=== PATIENT | male | born 1965 | race Caucasian/White ===

== ENCOUNTER 2018-09-29 13:39 | Emergency (ER) | payer SELFPAY ==
[~2018-09-29] VITALS: Ht 190.5 cm; Wt 140.0 kg
[2018-09-29] MEDS ORDERED: LORazepam 1MG TABLET PO ONE (14:30)
[2018-09-29] MEDS ORDERED: LORazepam 1MG TABLET ONE (14:33)
[2018-09-29 14:34] LABS: BASOPHILS # (AUTO) 0.04 x10^3/uL (0-0.1); BASOPHILS % (AUTO) 1 % (0-1); EOSINOPHILS # (AUTO) 0.12 x10^3/uL (0-0.4); EOSINOPHILS % (AUTO) 1 % (1-7); LYMPHOCYTES # (AUTO) 1.21 x10^3/uL (1-3.4); LYMPHOCYTES % (AUTO) 13 % (22-44); MD NO; MEAN CORPUSCULAR HEMOGLOBIN 28.7 pg (27.5-34.5); MEAN CORPUSCULAR HGB CONC 32.5 g/dL (33.2-36.2); MEAN CORPUSCULAR VOLUME 88.3 fL (81-97); MEAN PLATELET VOLUME 7.7 fL (7.4-10.4); MONOCYTES # (AUTO) 0.51 x10^3/uL (0.2-0.8); MONOCYTES % (AUTO) 6 % (2-9); NEUTROPHILS # (AUTO) 7.37 x10^3/uL (1.8-6.8); NEUTROPHILS % (AUTO) 80 % (42-75); PLATELET COUNT 303 x10^3/uL (130-400); RED BLOOD COUNT 5.15 x10^6/uL (4.38-5.82); RED CELL DISTRIBUTION WIDTH 15.4 % (9.4-14.8)
[2018-09-29 14:45] LABS: ALANINE AMINOTRANSFERASE 21 U/L (12-78); ALBUMIN 3.1 g/dL (3.4-5.0); ANION GAP 7 mmol/L (5-15); CALCIUM 8.4 mg/dL (8.5-10.1); CHLORIDE 110 mmol/L (98-107); CREATININE 1.12 mg/dL (0.7-1.3)
[2018-09-29 14:49] LABS: ALKALINE PHOSPHATASE 143 U/L (45-117); BILIRUBIN,TOTAL 0.8 mg/dL (0.2-1.0); TOTAL PROTEIN 7.4 g/dL (6.4-8.2); TROPONIN I < 0.015 ng/mL (0.000-0.045)
--- NOTE | 2018-09-29 14:49 | NUR ---
pt new to [facility], hasn't found a PCP yet. could feel his BP raising and thought he should do something about it. cxr done, ativan given, waiting on bp Rx from pharmacy. pt on monitor, call light withine reach.
[2018-09-29] MEDS ORDERED: HYDROCHLOROTHIAZIDE 25 MG TABLET PO ONE (15:00)
--- NOTE | 2018-09-29 15:20 | NUR ---
PT AMBULATED TO BATHROOM, rX GIVEN, PT BACK ON OLIVE BRINE TESTER. RESTING AND WATCHING TV. CALL LIGHT WITH IN REACH.
[2018-09-29] MEDS ORDERED: hydrALAzine 20 MG/ML, 1ML IV ONE (16:00)
--- NOTE | 2018-09-29 16:44 | NUR ---
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 pt given Rx and signed his AMA paperwork. his BP remains high.
[2018-09-29 16:48] VITALS: BP 230/119
== END 2018-09-29 15:32 | disposition home or self-care (01) ==
LOC: ED 14:32
DX: I10 Essential (primary) hypertension (principal); F10.231 Alcohol dependence with withdrawal delirium; Y90.9 Presence of alcohol in blood, level not specified
CPT/HCPCS: 36415; 71045; 80053; 83880; 84484; 85025; 93005; 99291

== ENCOUNTER 2019-01-07 01:12 | Inpatient (IN) | payer OTHER ==
[~2019-01-07] VITALS: Ht 190.5 cm; Wt 163.8 kg
[2019-01-07] MEDS ORDERED: HYDR25TA6 PO (01:19)
[2019-01-07] MEDS ORDERED: SODIUM CHLORIDE FLUSH 10ML SYR IVF ONE (01:30)
[2019-01-07] MEDS ORDERED: FUROSEMIDE 40 MG/4 ML IVPush ONE (01:30)
[2019-01-07] MEDS ORDERED: CEFAZOLIN PMX 1GM/50ML 50 ML IV ONE (01:30)
[2019-01-07 01:43] LABS: BASOPHILS # (AUTO) 0.03 x10^3/uL (0-0.1); BASOPHILS % (AUTO) 0 % (0-1); EOSINOPHILS # (AUTO) 0.38 x10^3/uL (0-0.4); EOSINOPHILS % (AUTO) 4 % (1-7); LYMPHOCYTES # (AUTO) 1.16 x10^3/uL (1-3.4); LYMPHOCYTES % (AUTO) 13 % (22-44); MD NO; MEAN CORPUSCULAR HEMOGLOBIN 26.5 pg (27.5-34.5); MEAN CORPUSCULAR HGB CONC 31.3 g/dL (33.2-36.2); MEAN CORPUSCULAR VOLUME 84.5 fL (81-97); MEAN PLATELET VOLUME 7.9 fL (7.4-10.4); MONOCYTES # (AUTO) 0.66 x10^3/uL (0.2-0.8); MONOCYTES % (AUTO) 8 % (2-9); NEUTROPHILS # (AUTO) 6.41 x10^3/uL (1.8-6.8); NEUTROPHILS % (AUTO) 74 % (42-75); PLATELET COUNT 354 x10^3/uL (130-400); RED BLOOD COUNT 4.95 x10^6/uL (4.38-5.82); RED CELL DISTRIBUTION WIDTH 17.2 % (9.4-14.8)
[2019-01-07] MEDS ORDERED: CEFAZOLIN PMX 1GM/50ML 50 ML ONE (01:48)
[2019-01-07] MEDS ORDERED: FUROSEMIDE 40 MG/4 ML ONE (01:48)
[2019-01-07 01:54] LABS: ALANINE AMINOTRANSFERASE 32 U/L (12-78); ALBUMIN 2.7 g/dL (3.4-5.0); ANION GAP 7 mmol/L (5-15); CALCIUM 7.8 mg/dL (8.5-10.1); CHLORIDE 103 mmol/L (98-107); CREATININE 1.25 mg/dL (0.7-1.3)
[2019-01-07 01:58] LABS: ALKALINE PHOSPHATASE 127 U/L (45-117); T4 (THYROXINE) 8.8 mcg/dL (4.5-12.1); TOTAL PROTEIN 7.2 g/dL (6.4-8.2); TROPONIN I 0.023 ng/mL (0.000-0.045)
--- NOTE | 2019-01-07 01:59 | NUR ---
PT ARRIVES TO ED WITH PRIMARY CO "I'M TOO SWOLLEN TO PEE" X TWO WEEKS, WORSENING TODAY. ABD NOTABLY DISTENDED, ERYTHEMATOUS AND WARM TO TOUCH, ABD AND BLE +3 PITTING EDEMA. PT W/ RAPID RESPIRATORY RATE, 20'S AND HYPOXIC UPON ARRIVAL TO ED. SPO2 NOW >90% ON 4L BY NC. PT SPEAKING IN FULL SENTENCES WO DIFFICULTY; REPORTS FREQUENT DRY COUGH AND INTERMITTED SOB. DENIES CP/FEVER/N/V. DENIES HX OF CHF. IV ESTABLISHED, LABS DRAWN. ABX INITIATED. NO BC DRAWN PER ERP. AWAITING POTASSIUM RESULT FOR LASIX ADMINISTRATION. BLADDER SCAN ATTEMPTED, UNABLE TO READ SECONDARY TO BODY HABITUS. ERP AWARE. NO LIU AT THIS TIME. IF UNABLE TO URINATE POST LASIX ADMIN WILL CONSIDER LIU INSERTION. BP/SPO2/ECG MONITORING IN PLACE. NSR ON MONITOR.
--- NOTE | 2019-01-07 02:08 | NUR ---
REPORT FROM CHEO ELLIOTT. WAITING FOR LAB RESULTS. CALL LIGHT IN REACH
[2019-01-07 03:12] VITALS: BP 150/90
[2019-01-07] MEDS ORDERED: ASPI-515 PO (03:31)
[2019-01-07 03:47] LABS: MICROSCOPIC NOT IND
[2019-01-07 03:50] LABS: CULTURE INDICATED? NO
[2019-01-07] MEDS ORDERED: ONDANSETRON 2MG/ML, 2ML IVPush PRN (05:00)
[2019-01-07] MEDS ORDERED: LABETALOL 5MG/ML, 20ML IVPush PRN (05:00)
[2019-01-07 05:26] LABS: INTERNATIONAL NORMALIZED RATIO 1.21 (0.93-1.1); PROTHROMBIN TIME 12.6 Seconds (9.6-11.5)
[2019-01-07] MEDS: HEPARIN 5,000 UNITS/ML, 1ML SQ SCH ×3 (05:34→20:57)
[2019-01-07] MEDS: CEPHALEXIN 500 MG CAPSULE PO SCH ×2 (05:39→11:12)
[2019-01-07 06:29] LABS: CHOL/HDL RATIO 2.8; LDL/HDL RATIO 1.3 (0.5-3.0)
[2019-01-07 06:50] LABS: FREE T4 (FREE THYROXINE) 1.05 ng/dL (0.76-1.46)
[2019-01-07] MEDS ORDERED: FUROSEMIDE 40 MG/4 ML IV SCH (07:30)
[2019-01-07 07:51] VITALS: BP 176/104
[2019-01-07] MEDS: THIAMINE 100MG TABLET PO SCH ×2 (07:59→20:57)
[2019-01-07] MEDS: MULTIVITAMIN 1 TABLET PO SCH (07:59)
[2019-01-07] MEDS: FOLIC ACID 1 MG TABLET PO SCH (07:59)
[2019-01-07] MEDS: FUROSEMIDE 40 MG TABLET PO SCH ×2 (08:46→20:56)
[2019-01-07] MEDS ORDERED: ACETAMINOPHEN 325 MG TABLET PO PRN (09:00)
[2019-01-07] MEDS ORDERED: POTASSIUM CHLORIDE 20 MEQ TAB.ER.PRT PO ONE (09:00)
[2019-01-07] MEDS ORDERED: MAGNESIUM SULFATE PMX 4GM/100M 100 ML IV ONE (09:00)
[2019-01-07] MEDS: CARVEDILOL 6.25 MG TABLET PO SCH ×2 (09:02→17:30)
[2019-01-07 14:45] VITALS: BP 168/103
[2019-01-07 20:15] VITALS: BP 165/79
[2019-01-08 00:06] VITALS: BP 168/84
[2019-01-08] MEDS: CARVEDILOL 6.25 MG TABLET PO SCH ×2 (05:34→17:06)
[2019-01-08] MEDS: HEPARIN 5,000 UNITS/ML, 1ML SQ SCH ×3 (05:35→20:11)
[2019-01-08 06:25] LABS: BASOPHILS # (AUTO) 0.04 x10^3/uL (0-0.1); BASOPHILS % (AUTO) 1 % (0-1); EOSINOPHILS # (AUTO) 0.33 x10^3/uL (0-0.4); EOSINOPHILS % (AUTO) 4 % (1-7); LYMPHOCYTES # (AUTO) 0.73 x10^3/uL (1-3.4); LYMPHOCYTES % (AUTO) 8 % (22-44); MD NO; MEAN CORPUSCULAR HEMOGLOBIN 26.3 pg (27.5-34.5); MEAN CORPUSCULAR HGB CONC 30.9 g/dL (33.2-36.2); MEAN CORPUSCULAR VOLUME 85.1 fL (81-97); MEAN PLATELET VOLUME 8.2 fL (7.4-10.4); MONOCYTES # (AUTO) 0.66 x10^3/uL (0.2-0.8); MONOCYTES % (AUTO) 8 % (2-9); NEUTROPHILS # (AUTO) 6.95 x10^3/uL (1.8-6.8); NEUTROPHILS % (AUTO) 80 % (42-75); PLATELET COUNT 338 x10^3/uL (130-400); RED BLOOD COUNT 4.39 x10^6/uL (4.38-5.82); RED CELL DISTRIBUTION WIDTH 17.5 % (9.4-14.8)
[2019-01-08 06:38] LABS: CALCIUM 7.8 mg/dL (8.5-10.1); CHLORIDE 103 mmol/L (98-107)
[2019-01-08 06:46] LABS: ALANINE AMINOTRANSFERASE 22 U/L (12-78); ALBUMIN 2.5 g/dL (3.4-5.0); ALKALINE PHOSPHATASE 105 U/L (45-117); ANION GAP 6 mmol/L (5-15); BILIRUBIN,TOTAL 1.5 mg/dL (0.2-1.0); CREATININE 0.86 mg/dL (0.7-1.3); TOTAL PROTEIN 6.4 g/dL (6.4-8.2)
[2019-01-08 06:52] VITALS: BP 168/90
[2019-01-08] MEDS ORDERED: MAGNESIUM SULFATE PMX 4GM/100M 100 ML IV ONE ×2 (08:30→18:30)
[2019-01-08] MEDS ORDERED: POTASSIUM CHLORIDE 20 MEQ TAB.ER.PRT PO ONE (09:00)
[2019-01-08] MEDS: THIAMINE 100MG TABLET PO SCH ×2 (09:26→20:11)
[2019-01-08] MEDS: FUROSEMIDE 40 MG TABLET PO SCH ×2 (09:26→20:11)
[2019-01-08] MEDS: FOLIC ACID 1 MG TABLET PO SCH (09:27)
[2019-01-08] MEDS: MULTIVITAMIN 1 TABLET PO SCH (09:27)
[2019-01-08] MEDS: ISOSORBIDE DINITRATE 10 MG TABLET PO SCH ×3 (09:27→20:11)
[2019-01-08 12:32] VITALS: BP 170/100
[2019-01-08 18:41] VITALS: BP 150/78
[2019-01-09 01:24] VITALS: BP 158/84
[2019-01-09] MEDS: CARVEDILOL 6.25 MG TABLET PO SCH (05:41)
[2019-01-09] MEDS: HEPARIN 5,000 UNITS/ML, 1ML SQ SCH ×2 (05:41→13:00)
[2019-01-09 06:06] LABS: BASOPHILS # (AUTO) 0.06 x10^3/uL (0-0.1); BASOPHILS % (AUTO) 1 % (0-1); EOSINOPHILS # (AUTO) 0.31 x10^3/uL (0-0.4); EOSINOPHILS % (AUTO) 4 % (1-7); LYMPHOCYTES # (AUTO) 0.84 x10^3/uL (1-3.4); LYMPHOCYTES % (AUTO) 10 % (22-44); MD NO; MEAN CORPUSCULAR HGB CONC 31.1 g/dL (33.2-36.2); MEAN CORPUSCULAR VOLUME 83.4 fL (81-97); MEAN PLATELET VOLUME 7.4 fL (7.4-10.4); MONOCYTES # (AUTO) 0.58 x10^3/uL (0.2-0.8); MONOCYTES % (AUTO) 7 % (2-9); NEUTROPHILS # (AUTO) 6.95 x10^3/uL (1.8-6.8); NEUTROPHILS % (AUTO) 79 % (42-75); PLATELET COUNT 343 x10^3/uL (130-400); RED BLOOD COUNT 3.63 x10^6/uL (4.38-5.82); RED CELL DISTRIBUTION WIDTH 17.5 % (9.4-14.8)
[2019-01-09 06:11] LABS: ANION GAP 5 mmol/L (5-15); CALCIUM 7.9 mg/dL (8.5-10.1); CHLORIDE 104 mmol/L (98-107); CREATININE 0.92 mg/dL (0.7-1.3)
[2019-01-09] MEDS: FOLIC ACID 1 MG TABLET PO SCH (08:06)
[2019-01-09] MEDS: MULTIVITAMIN 1 TABLET PO SCH (08:06)
[2019-01-09] MEDS: FUROSEMIDE 40 MG TABLET PO SCH (08:06)
[2019-01-09] MEDS: ISOSORBIDE DINITRATE 10 MG TABLET PO SCH ×2 (08:07→15:59)
[2019-01-09] MEDS: THIAMINE 100MG TABLET PO SCH (08:08)
[2019-01-09] MEDS ORDERED: MAGNESIUM SULFATE PMX 4GM/100M 100 ML IV ONE (08:30)
[2019-01-09 09:18] VITALS: BP 138/76
[2019-01-09] MEDS ORDERED: ISOS10TA2 PO (10:42)
[2019-01-09] MEDS ORDERED: THIA100T67 PO (10:42)
[2019-01-09] MEDS ORDERED: FURO40TA6 PO (10:42)
[2019-01-09] MEDS ORDERED: CARV12.52 PO (10:42)
[2019-01-09] MEDS ORDERED: HYDR-3342 PO (10:42)
[2019-01-09] MEDS ORDERED: SPIR25TA5 PO (10:44)
[2019-01-09] MEDS ORDERED: LISI2.5T PO (10:44)
[2019-01-09 14:57] VITALS: BP 116/68
[2019-01-09] MEDS ORDERED: FLU VAC QS 19-20(4YR UP)CEL/PF 0.5 ML IM-VACC ONE (15:30)
[2019-01-09] MEDS ORDERED: FLU VACCINE PER PHARMACY IM ONE (15:30)
[2019-01-09] MEDS ORDERED: CARVEDILOL 12.5 MG TABLET PO SCH (18:00)
== END 2019-01-09 16:56 | disposition home or self-care (01) | DRG 291 ==
LOC: ED 02:34 → EDIP 03:02 → 4WST 03:05 → 4EST 01-09 09:34 → DCLOUNGE 01-09 16:22
PROVIDERS: ADMIT Family Medicine; ATTEND Internal Medicine
DX: I11.0 Hypertensive heart disease with heart failure (principal); J96.01 Acute respiratory failure with hypoxia; L03.311 Cellulitis of abdominal wall; Z68.42 Body mass index [BMI] 45.0-49.9, adult; D64.9 Anemia, unspecified; I50.41 Acute combined systolic (congestive) and diastolic (congestive) heart failure; E66.01 Morbid (severe) obesity due to excess calories; E83.42 Hypomagnesemia; E88.09 Other disorders of plasma-protein metabolism, not elsewhere classified; F10.10 Alcohol abuse, uncomplicated; Y90.9 Presence of alcohol in blood, level not specified; F12.10 Cannabis abuse, uncomplicated; F17.200 Nicotine dependence, unspecified, uncomplicated; G47.00 Insomnia, unspecified; K70.9 Alcoholic liver disease, unspecified; N50.811 Right testicular pain; N50.812 Left testicular pain; Z82.49 Family history of ischemic heart disease and other diseases of the circulatory system; Z91.19 Patient's noncompliance with other medical treatment and regimen; Z88.2 Allergy status to sulfonamides; Z88.8 Allergy status to other drugs, medicaments and biological substances
CPT/HCPCS: 36415; 36600; 71045; 76700; 80048; 80053; 80061; 80074; 81003; 82803; 83735; 83880; 84100; 84436; 84439; 84443; 84484; 85025; 85610; 90674; 93005; 93306; 96365; 96375; G0378; J0690; J1644; J1940; J3475